=== PATIENT | female | born 1975 | race Caucasian/White ===

== ENCOUNTER 2021-06-25 17:07 | Emergency (ER) | payer SELFPAY ==
[~2021-06-25] VITALS: Ht 165.1 cm; Wt 90.7 kg
[2021-06-25 17:13] VITALS: BP_SYST 135
--- NOTE | 2021-06-25 17:30 | NUR ---
Patient to ER bed 8 to gown for evaluation. Side rails up. Assumed care.
--- NOTE | 2021-06-25 17:38 | NUR ---
Pt. bib fiance with c/o N/V/D X 2 days, but states hasn't felt well for 2 weeks, states has felt lethargic, and has pain to left side of abd.
--- NOTE | 2021-06-25 17:50 | NUR ---
ER at bedside examining patient.
[2021-06-25] MEDS ORDERED: LOPERAMIDE HCL 2 MG CAPSULE PO ONE (18:00)
[2021-06-25] MEDS ORDERED: ONDANSETRON HCL 4 MG/2 ML VIAL IVP ONE (18:00)
[2021-06-25] MEDS ORDERED: NACL 0.9% 1,000 ML IV ONE (18:00)
[2021-06-25] MEDS ORDERED: ACETAMINOPHEN 500 MG TABLET PO ONE (18:30)
[2021-06-25 18:55] LABS: BASOPHILS # (AUTO) 0.1 K/uL (0.0-0.2); BASOPHILS % (AUTO) 0.5 % (0.0-2.0); EOSINOPHILS # (AUTO) 0.2 K/uL (0.0-0.4); EOSINOPHILS % (AUTO) 1.2 % (0.0-4.0); HEMOGLOBIN 13.3 g/dL (12.0-16.0); LYMPHOCYTES # (AUTO) 2.1 K/uL (1.0-5.5); LYMPHOCYTES % (AUTO) 12.6 % (20.5-51.5); MEAN CORPUSCULAR HEMOGLOBIN 30 pg (27-31); MEAN CORPUSCULAR HGB CONC 33 % (32-36); MEAN CORPUSCULAR VOLUME 89 fL (79.0-98.0); MONOCYTES # (AUTO) 1.2 K/uL (0.0-1.0); MONOCYTES % (AUTO) 7.2 % (1.7-9.3); NEUTROPHILS # (AUTO) 13.2 K/uL (1.8-7.7); NEUTROPHILS % (AUTO) 78.5 % (40.0-70.0); PLATELET COUNT (AUTO) 272 K/uL (130-430); RED BLOOD CELL COUNT(AUTO) 4.51 MIL/uL (4.2-6.2); RED CELL DISTRIBUTION WIDTH 14.2 % (9.0-15.0); WHITE BLOOD COUNT (AUTO) 16.7 K/uL (4.8-10.8)
[2021-06-25 18:56] LABS: CALCIUM 9.7 mg/dL (8.4-11.0); CREATININE 0.9 mg/dL (0.55-1.30); POTASSIUM 4.3 mmol/L (3.5-5.1)
[2021-06-25 19:02] LABS: ALBUMIN 3.4 g/dL (3.4-4.8); TOTAL BILIRUBIN 0.7 mg/dL (0.0-1.0)
[2021-06-25] MEDS ORDERED: ONDA-8 TL ×2 (19:03→21:29)
[2021-06-25] MEDS ORDERED: LOPE2CAP PO ×2 (19:03→21:29)
--- NOTE | 2021-06-25 19:15 | NUR ---
Report given to Berna COMBS.
--- NOTE | 2021-06-25 19:34 | NUR ---
Received pt in bed in stable cond. No acute distress. Breathing adequately on RA. Addendum: 06/25/21 at 1935 by [id number] LAURYN Coronel
[2021-06-25] MEDS ORDERED: MAG HYDROX/AL HYDROX/SIMETH 30 ML, DICYCLOMINE HCL 20 MG, LIDOCAINE VISCOUS 2% 15ML (PO... PO ONE ×3 (20:00)
[2021-06-25 21:44] VITALS: BP_SYST 132
--- NOTE | 2021-06-25 21:46 | NUR ---
Patient given written and verbal discharge instructions and verbalizes understanding. ER MD Moreno discussed with patient the results and treatment provided. Patient in stable condition. ID arm band removed. IV catheter removed intact and dressing applied, no active bleeding. Rx of Imodium and Zofran sent to pharmacy of choice. Patient educated on pain management and to follow up with PMD. Pain Scale 1/10 upon discharge. Opportunity for questions provided and answered. Medication side effect fact sheet provided.
== END 2021-06-25 21:44 | disposition home or self-care (01) ==
LOC: SED 17:07
DX: K52.9 Noninfective gastroenteritis and colitis, unspecified (principal); Z79.899 Other long term (current) drug therapy
CPT/HCPCS: 36415; 74176; 76376; 80053; 81025; 83690; 85025; 96361; 96374; 99284; J2001; J2405; J7030